=== PATIENT | female | born 1995 | race Caucasian/White ===

== ENCOUNTER 2017-12-20 20:54 | Emergency (ER) ==
[2017-12-20] MEDS ORDERED: PHENERGAN 25 MG/ML VIAL IM STA (21:06)
[2017-12-20] MEDS ORDERED: DILAUDID 1 MG/ML SYRINGE IM STA (21:06)
[2017-12-20 21:08] VITALS: BP 154/90; TEMP 97.7; BMI 30.2
[2017-12-20] MEDS ORDERED: BENTYL IM STA (21:08)
--- NOTE | 2017-12-20 22:02 | CT ---
Exam: CT abdomen pelvis without intravenous contrast. Comparison: None available. Reason for exam: Left upper quadrant pain. FINDINGS: Image interpretation is limited by the lack of intravenous contrast administration. No pleural effusion, or focal consolidation in the partially imaged lung bases. A moderate amount of retained food product is seen within the stomach. The spleen, liver, adrenal glands and pancreas appear grossly unremarkable within limitations of a no ncontrasted study. Nodular density adjacent pancreatic tail presumably a splenule. A 4 mm stone is seen in the left uday al collecting system with a adjacent 2 mm stone in the left renal collecting system. No hydronephros is or hydroureter is seen in the left kidney. The bladder appears grossly unremarkable. Intrauterine device is seen in appropriate position. 3 mm stone is seen in the right renal collecting system. No definite hydronephrosis or ureterolithia sis is seen in the right kidney. No focal small bowel dilatation or transition point. No intra-abdominal free air or pelvic free fluid. The appendix is not seen on the exam. No intra-abdominal free air or pelvic free fluid. There is a large stool burden seen throughout the colon. No suspicious appearing osteoblastic or osteolytic lesion. Impression: 1. Bilateral nephrolithiasis without obvious hydronephrosis or hydroureter. Image interpretation is limited by the lack of intravenous contrast administration. 2. Large stool burden seen throughout the colon. 3 Large amount of retained food products in the stomach. Findings can be seen with gastroenteritis , gastroparesis, and outlet obstruction. If clinical concern exists, follow-up imaging may be perfor med.
--- NOTE | 2017-12-20 22:22 | ED.PDOC ---
General ED Provider: Dr. MATIAS MCMULLEN-ER Chief Complaint: Abdominal Pain Stated Complaint: im hurting after i eat Time Seen by Physician: 22:19 Mode of Arrival: Wheelchair Information Source: Patient Exam Limitations: No limitations Nursing and Triage Documentation Reviewed and Agree: Yes Does patient meet sepsis criteria?: No System Inflammatory Response Syndrome: Not Applicable Sepsis Protocol: For patient's 13 years and over: Temp is 96.8 and below OR 101 and greater Pulse >90 BPM Resp >20/minute Acutely Altered Mental Status Are patient's symptoms suggestive of a new infection, such as: -Pneumonia -Skin, Soft Tissue -Endocarditis -UTI -Bone, Joint Infection -Implantable Device -Acute Abdominal Infection -Wound Infection -Meningitis -Blood Stream Catheter Infection -Unknown GI Complaint Exam - Abdominal Pain Complaint/Exam Onset: Gradual Duration: several min Symptoms Are: Still present Timing: Constant Initial Severity: Mild Current Severity: Moderate Location of Pain: Discrete, LUQ Character: Reports: Dull, Aching Associated Signs and Symptoms: Denies: Diaphoresis, Fever, Cough, Chest pain, Dizziness, Back pain, Constipation, Blood in stool, Dysuria, Urinary frequency, Decreased urine output, Decreased appetite, Vaginal bleeding, Vaginal discharge , Nausea, Vomiting, Diarrhea, Sore throat, Decreased activity Review of Systems - Review Of Systems Constitutional: Reports: No symptoms Eyes: Reports: No symptoms Ears, Nose, Mouth, Throat: Reports: No symptoms Respiratory: Reports: No symptoms Cardiac: Reports: No symptoms GI: Reports: Abdominal pain : Reports: No symptoms Musculoskeletal: Reports: No symptoms Skin: Reports: No symptoms Neurological: Reports: No symptoms Endocrine: Reports: No symptoms Hematologic/Lymphatic: Reports: No symptoms All Other Systems: Reviewed and Negative Past Medical History - Past Medical History Previously Healthy: Yes Endocrine: Reports: Unknown Cardiovascular: Reports: Unknown Respiratory: Reports: Unknown Hematological: Reports: Unknown Gastrointestinal: Reports: Unknown Genitourinary: Reports: Unknown Neuro/Psych: Reports: Unknown Musculoskeletal: Reports: Unknown Cancer: Reports: Unknown Last Menstrual Period: mid november - Surgical History General Surgical History: Reports: Unknown - Family History Family History: Reports: Unknown - Social History Smoking Status: Never smoker Hx Substance Use: No Alcohol Screening: Occasionally - Immunizations Tetanus Shot up to Date: Yes Physical Exam - Physical Exam Appearance: Well-appearing, No pain distress, Well-nourished Pain Distress: Moderate Eyes: NEETU, EOMI, Conjunctiva clear ENT: Ears normal, Nose normal, Oropharynx normal Neck: Supple Respiratory: Airway patent, Breath sounds clear, Breath sounds equal, Respirations nonlabored Cardiovascular: RRR, Pulses normal, No rub, No murmur GI/: Soft, Nontender, No masses, Bowel sounds normal, No Organomegaly Musculoskeletal: Normal strength, ROM intact, No edema, No calf tenderness Skin: Warm Neurological: Sensation intact Psychiatric: Affect appropriate, Mood appropriate Interpretation - Radiology Interpretation Radiology Interpretation By: Radiologist Radiology Results: Negative Exam Interpreted: CT Scan Re-Evaluation - Re-Evaluation Time of Re-Evaluation: 22:21 Status: Improved Vital Signs Stable: Yes Pain Level: 0 Appearance: NAD Lungs: Clear Skin: Warm and Dry Neuro: Alert and Oriented X3 CV: RRR Critical Care Note - Critical Care Note Total Time (mins): 0 Course - Course Hematology/Chemistry: 12/20/17 21:17 12/20/17 21:17 Orders, Labs, Meds: Lab Review 12/20/17 12/20/17 12/20/17 21:17 21:17 21:17 WBC 12.12 H RBC 4.13 L Hgb 10.7 L Hct 32.9 L MCV 79.7 L MCH 25.9 L MCHC 32.5 RDW Coeff of Leonor 15.6 H Plt Count 308 Immature Gran % (Auto) 0.2 Neut % (Auto) 57.9 Lymph % (Auto) 33.4 [place] % (Auto) 6.6 Eos % (Auto) 1.5 Baso % (Auto) 0.4 Immature Gran # (Auto) 0.0 Neut # (Auto) 7.0 H Lymph # (Auto) 4.1 H [place] # (Auto) 0.8 Eos # (Auto) 0.2 Baso # (Auto) 0.1 ESR 16 D-Dimer (Manual) Sodium 138.9 Potassium 3.62 Chloride 105.6 Carbon Dioxide 24.8 Anion Gap 12.12 BUN 8.0 Creatinine 0.63 Estimated GFR (MDRD) 118.00 BUN/Creatinine Ratio 12.69 Glucose 103.7 Calcium 9.80 Total Bilirubin 0.70 AST 67.1 H ALT 37.1 H Alkaline Phosphatase 113.8 Total Protein 7.69 Albumin 4.33 Globulin 3.36 Albumin/Globulin Ratio 1.28 Amylase 68.8 Lipase 73.5 Serum , Qual Negative Urine Color Urine Clarity Urine pH Ur Specific [place] Urine Protein Urine Glucose (UA) Urine Ketones Urine Blood Urine Nitrite Urine Bilirubin Urine Urobilinogen Ur Leukocyte Esterase Urine Microscopic RBC Urine Microscopic WBC Ur Squamous Epith Cells Urine Bacteria 12/20/17 12/20/17 21:17 21:25 WBC RBC Hgb Hct MCV MCH MCHC RDW Coeff of Leonor Plt Count Immature Gran % (Auto) Neut % (Auto) Lymph % (Auto) [place] % (Auto) Eos % (Auto) Baso % (Auto) Immature Gran # (Auto) Neut # (Auto) Lymph # (Auto) [place] # (Auto) Eos # (Auto) Baso # (Auto) ESR D-Dimer (Manual) 516.24 Sodium Potassium Chloride Carbon Dioxide Anion Gap BUN Creatinine Estimated GFR (MDRD) BUN/Creatinine Ratio Glucose Calcium Total Bilirubin AST ALT Alkaline Phosphatase Total Protein Albumin Globulin Albumin/Globulin Ratio Amylase Lipase Serum , Qual Urine Color Yellow Urine Clarity Clear Urine pH 6.0 Ur Specific [place] 1.025 Urine Protein Negative Urine Glucose (UA) Negative Urine Ketones Negative Urine Blood 1+ Urine Nitrite Negative Urine Bilirubin Negative Urine Urobilinogen 0.2 Ur Leukocyte Esterase Negative Urine Microscopic RBC 0-2 Urine Microscopic WBC 0-2 Ur Squamous Epith Cells 5-10 Urine Bacteria Trace Orders Category Date Time Status AMYLASE Stat LAB 12/20/17 21:17 Completed CBC W/ AUTO DIFF Stat LAB 12/20/17 21:17 Completed COMPREHENSIVE METABOLIC PANEL Stat LAB 12/20/17 21:17 Completed D-DIMER Stat LAB 12/20/17 21:17 Completed ESR Stat LAB 12/20/17 21:17 Completed LIPASE Stat LAB 12/20/17 21:17 Completed SERUM Stat LAB 12/20/17 21:17 Completed URINALYSIS C & S IF INDICATED Stat LAB 12/20/17 21:25 Completed Dicyclomine Inj [Bentyl] MEDS 12/20/17 21:08 Discontinued 10 mg IM ONCE STA Hydromorphone HCl [Dilaudid 1 mg/ml Syringe] MEDS 12/20/17 21:06 Discontinued 1 mg IM ONCE STA Promethazine HCl [Phenergan 25 mg/ml Vial] MEDS 12/20/17 21:06 Discontinued 25 mg IM ONCE STA CT ABDOMEN/PELVIS WO CONTRAST Stat RADS 12/20/17 21:06 Completed Medications Discontinued Medications Generic Name Dose Route Start Last Admin Trade Name Felicity PRN Reason Stop Dose Admin Dicyclomine HCl 10 mg 12/20/17 21:08 12/20/17 21:39 Bentyl IM 12/20/17 21:09 10 mg ONCE STA Administration Hydromorphone HCl 1 mg 12/20/17 21:06 12/20/17 21:44 Dilaudid 1 Mg/Ml Syringe IM 12/20/17 21:07 1 mg ONCE STA Administration Promethazine HCl 25 mg 12/20/17 21:06 12/20/17 21:42 Phenergan 25 Mg/Ml Vial IM 12/20/17 21:07 25 mg ONCE STA Administration Vital Signs: Temp Pulse Resp BP Pulse Ox 12/20/17 20:55 97.7 F 105 H 20 154/90 H 99 Departure - Departure Time of Disposition: 22:21 Disposition: HOME SELF-CARE Discharge Problem: Abdominal pain Instructions: Acute Abdominal Pain (ED) Condition: Good Pt referred to PMD for follow-up: Yes IPMP verified?: No Additional Instructions: librax q 8hrs hrs prn pain #10----f/u with pcp tomorrow for further testing Allergies/Adverse Reactions: Allergies No Known Allergies Allergy (Unverified 12/20/17 20:59) Home Medications: Ambulatory Orders Phentermine HCl 30 mg PO DAILY 12/20/17 Disposition Discussed With: Patient, Family
== END 2017-12-20 22:30 | disposition home or self-care (01) ==
LOC: ED 20:54
DX: R10.9 Unspecified abdominal pain (principal)
CPT/HCPCS: 36415; 80053; 81001; 82150; 83690; 84703; 85025; 85379; 85651; 96372; 99283